=== PATIENT | female | born 1970 | race Caucasian/White ===

== ENCOUNTER → 2016-06-06 | Outpatient (CLI) | payer BC, OTHER ==
[~2016-06-06] MED LIST: ATENOLOL; BENTYL; BENTYL10 MG PO; CIPROFLOXACIN500 M1 PO; DARVOCET-N 1001 EAC1 PO; FLAGYL500 MG PO; GLUCOPHAGE500 MG; HCTZ; HYDROCHLOROTHIA25 M2; IBUPROFEN 600600 M1 PO; LEVOTHYROXIN0.125 M2 PO; LISINOPRIL5 MG; METFORMIN; MULTIVITAMINS1 EAC7; NORCO 5-325 TA1 EACH PO; PHENERGAN 25 MG25 M1 PO; PRILOSEC40 MG; ZOFRAN ODT4 MG PO
--- NOTE | ~2016-06-06 | SLE ---
[facility] [address] [place] [place] [address] POLYSOMNOGRAPHY STUDY Name: JULIO CÉSAR NUNEZ Room #: REG [facility]..#: [id number] Admission: 06/06/16 Attend Phys: Anders Gross MD Discharge: Date of : 70 Report #: [id number] THIS REPORT FOR: //name// CC: Anders Small A 46-year-old, height 5 feet 9 inches, weight 330 pounds. The patient usually goes to bed between 10:30 and 11, gets out of bed at 7:00 a.m. Positive history of snoring and daytime somnolence. [place] sleepiness scale of 16. COMMENTS: SLEEP SUMMARY: Total sleep time 323 minutes, sleep efficiency 83%. Sleep latency 3 minutes. No REM sleep seen. SLEEP STAGE: 1-62%, 2-37%, 3-1%. RESPIRATORY SUMMARY: Central apnea 0, mixed apnea 0, obstructive apnea 93, hypopnea 230. Apnea-hypopnea index of 60 events per sleep hour. Supine AHI 72, left lateral 28 events per sleep hour. Periodic limb movement with arousal index of 3.2 events per sleep hour. 40% of time in snoring. Low oxygen saturation 76%, spending approximately 6% recording time less than 90%. IMPRESSION: 1. Obstructive sleep apnea/hypopnea, G47.33. 2. No significant arrhythmia. 3. Periodic limb movement with arousal index of 3.2 events per sleep hour. 4. Abnormal sleep architecture. SUGGESTIONS: 1. In addition to specific therapy, the patient should be cautioned regarding driving or operating dangerous machinery unless fully alert. 2. The patient should be cautioned regarding the use of respiratory depressants. 3. Oral appliance or appropriate surgery may be considered with appropriate followup. 4. This was a very disrupted night sleep and further discussion is recommended. 5. Sleep hygiene measures are recommended. 6. Auto titrating CPAP or a CPAP titration night is recommended depending on the patient's circumstances. 7. If signs and symptoms not improved with therapy, further evaluation [facility] [address] [place] [address] POLYSOMNOGRAPHY STUDY Name: ENRIQUEJULIO CÉSAR Room #: REG [facility]#: [id number] Admission: 06/06/16 Attend Phys: Anders Gross MD Discharge: Date of : 70 Report #: [id number] recommended. Please do not hesitate to contact me if I may be of further assistance. By: 27 [id number] Jose Antonio Pastor MD /nt
== END ==
LOC: SLEEPLAB 21:00
DX: G47.33 Obstructive sleep apnea (adult) (pediatric) (principal)

== ENCOUNTER 2018-02-07 18:24 | Emergency (ER) | payer BC, OTHER ==
[~2018-02-07] VITALS: Ht 172.7 cm; Wt 145.2 kg
[~2018-02-07 18:24] MED LIST changes: -LISINOPRIL5 MG; +LISINOPRIL5 MG PO
[2018-02-07] MEDS ORDERED: GLUCOTROL5 MG PO (19:32)
[2018-02-07] MEDS ORDERED: EFFEXOR 5050 MG/1 T1 PO (19:33)
[2018-02-07] MEDS ORDERED: TRULICITY0.75 MG/0. IM (19:33)
[2018-02-07] MEDS ORDERED: STEGLATRO15 MG PO (19:33)
[2018-02-07] MEDS ORDERED: SYNTHROID75 MCG PO (19:34)
[2018-02-07] MEDS ORDERED: ROSUVASTATIN CA20 MG PO (19:37)
[2018-02-07 20:09] LABS: ABSOLUTE NEUTROPHILS 10.4 thou/uL (1.4-8.2); BASOPHILS 0.2 % (0.0-2.0); HEMATOCRIT 43.7 % (37.0-47.0); HEMOGLOBIN 15.3 gm/dL (12.0-15.0); LYMPHOCYTES 9.9 % (24.0-44.0); MCH 28.4 pg (26.0-34.0); MCHC 34.9 g/dL (28.0-37.0); MCV 81.4 fL (80.0-100.0); MONOCYTES 5.5 % (1.0-8.0); PLATELET COUNT 277 thou/uL (150-400); POLYS 83.4 % (36.0-66.0); RBC 5.37 mil/uL (4.20-5.00); RDW 13.2 % (10.5-14.5); WBC 12.4 thou/uL (4.0-11.0)
[2018-02-07 20:11] LABS: ANION GAP 11 mmol/L (7-16); BUN 11 mg/dL (7-18); CALCIUM 9.2 mg/dL (8.5-10.1); CHLORIDE 102 mmol/L (98-107); CO2 25 mmol/L (21-32); CREATININE 0.8 mg/dL (0.6-1.0); GLUCOSE 145 mg/dL (74-106); SODIUM 138 mmol/L (136-145)
[2018-02-07 20:17] LABS: ALBUMIN 3.8 g/dL (3.4-5.0); DIRECT BILIRUBIN < 0.1 mg/dL (<0.1-0.3); LIPASE 80 U/L (73-393); SGOT 10 U/L (15-37); SGPT 21 U/L (30-65); TOTAL BILIRUBIN 0.3 mg/dL (<0.1-1.0); TOTAL PROTEIN 7.8 g/dL (6.4-8.2)
[2018-02-07] MEDS ORDERED: ONDANSETRON HCL4 M2 PO (22:43)
[2018-02-08 01:10] VITALS: BP 172/105
== END 2018-02-08 01:12 | disposition home or self-care (01) ==
LOC: ER 18:24
PROVIDERS: Student in an Organized Health Care Education/Training Program
DX: E87.6 Hypokalemia (principal); R19.7 Diarrhea, unspecified; R10.84 Generalized abdominal pain; E11.9 Type 2 diabetes mellitus without complications; I10 Essential (primary) hypertension; K58.9 Irritable bowel syndrome, unspecified; E03.9 Hypothyroidism, unspecified; E28.2 Polycystic ovarian syndrome; Z87.891 Personal history of nicotine dependence; Z88.2 Allergy status to sulfonamides; Z90.49 Acquired absence of other specified parts of digestive tract